=== PATIENT | male | born 1935 | race Caucasian/White ===

== ENCOUNTER 2019-02-12 18:12 | Inpatient (IN) | payer MEDICARE, BC ==
[2019-02-12 19:22] LABS: Bilirubin Moderate (Negative); Blood, Urine Moderate (Negative); Glucose, Urine (Dipstick) Negative (Negative); Leukocyte Negative (Negative); Nitrite Negative (Negative); Protein, Urine (Dipstick) Trace mg/dL (Neg-Trace); Specific Gravity, Urine 1.025 (1.005-1.030); Urobilinogen 0.2 mg/dL (0.2-1.0); pH, Urine 5.5 (5.0-9.0)
[2019-02-12 19:24] LABS: Clarity Hazy (Clear)
[2019-02-12 19:34] LABS: RBC/HPF 0-3 HPF (0-3)
[2019-02-12 19:35] LABS: Bacteria/HPF None Seen HPF (None Seen); Hyaline Casts/LPF 0-3 HYALINE CAST LPF (0-3 Hyaline); Squamous Epithelial None Seen HPF (0-3)
[2019-02-12 19:42] LABS: ALT (SGPT) 33 U/L (8-55); AST (SGOT) 144 U/L (5-34); Albumin 3.1 g/dL (3.4-4.8); Alkaline Phosphatase 34 U/L (40-150); Anion Gap 13 mmol/L (10-20); BUN (Urea Nitrogen) 49 mg/dL (8.4-25.7); Bilirubin, Total 0.9 mg/dL (0.2-1.2); CK (CPK) 2584 U/L (30-200); Calc. Creatinine Clearance 0 mL/min (70-130); Calcium 7.8 mg/dL (7.8-10.44); Carbon Dioxide 26 mmol/L (23-31); Chloride 92 mmol/L (98-107); Estimated GFR-MDRD 19; Globulin 2.1 g/dL (2.4-3.5); Glucose 107 mg/dL (83-110); Potassium 4.5 mmol/L (3.5-5.1); Protein, Total 5.2 g/dL (5.8-8.1); Sodium 126 mmol/L (136-145)
[2019-02-12 20:05] LABS: CKMB 17.6 ng/mL (0-6.6)
[2019-02-12] MEDS ORDERED: Ondansetron PF 4 MG/2 ML Vial IVP PRN (20:13)
[2019-02-12] MEDS ORDERED: Ondansetron ODT 4 MG TAB PO PRN (20:13)
[2019-02-12] MEDS ORDERED: hydrALAZINE 20 MG/ML VIAL SLOW IVP PRN (20:13)
[2019-02-12] MEDS ORDERED: Dextrose 5% in Water 1,000 ML IV PRN (20:13)
[2019-02-12] MEDS ORDERED: Dextrose 50% Abboject 50 ML SYRINGE SLOW IVP PRN (20:13)
[2019-02-12 20:26] LABS: Acetaminophen Less than 6.0 mcg/mL (10.0-30.0); Alcohol Less than 10 mg/dL (Less than 10); Salicylate Less than 8.0 mg/dL (15.0-30.0)
[2019-02-12] MEDS ORDERED: Multivitamins, Adult 10 ML, Thiamine HCl 100 MG, Folic Acid 1 MG in Dextrose 5 %-0.45 %... IV SCH (20:30)
[2019-02-12 20:38] LABS: Phosphorus 5.1 mg/dL (2.3-4.7)
[2019-02-12] MEDS: Sodium Chloride 0.9% 1,000 ML IV SCH ×2 (22:35→22:59)
[2019-02-12] MEDS: Famotidine/PF 20 mg/2ml Vial SLOW IVP SCH (22:35)
[2019-02-12] MEDS: Nicotine 14 MG PATCH TD SCH (22:35)
[2019-02-12 22:55] LABS: Free T4 (Free Thyroxine) 0.71 ng/dL (0.70-1.48); Thyroid Stimulating Hormone 0.9172 uIU/mL (0.35-4.94)
[2019-02-12 23:06] LABS: CKMB 18.1 ng/mL (0-6.6)
[2019-02-12 23:10] LABS: Folate (Folic Acid) 17.2 ng/mL (7.0-31.4)
[2019-02-13] MEDS: Acetaminophen 1,000 MG in Premix Bag 1 BAG IVPB SCH ×4 (01:55→17:29)
--- NOTE | 2019-02-13 03:47 | HP ---
REQUESTING PHYSICIAN: Dr. Groves. CONSULTS: Dr. Brady. SUBJECTIVE: This is an 83-year-old gentleman who presented as a transfer from [facility] status post fall. The patient last was seen or heard from on , the son tried to call the patient again the next day, and the patient did not answer the phone, which was unusual. The son arrived to the patient's house today where he lives alone around 1 o'clock and found the patient on the floor in his bedroom. The patient is normally ambulatory, alert and oriented x3. The patient was altered when he arrived. Son also reports that the patient has a past medical history of hyponatremia and alcohol abuse, although it appears that the patient has not consumed alcohol in the last week or 2. The patient was seen by his primary care physician, Dr. Hartman, 2 weeks ago where he was placed on an antidepressant medication. The patient was also placed on antibiotics due to wheezing. Son also reported that he has been feeling increasingly tired and there was some medication adjustments, but unsure of what medications were changed. The patient walks with a cane at home. Son also reports that the patient has meals prepare for him and has access to food daily. PAST MEDICAL HISTORY: 1. Gastroesophageal reflux disease. 2. Prostate problems. 3. Hypertension. 4. Hyponatremia. PAST SURGICAL HISTORY: Left shoulder. SOCIAL HISTORY: The patient lives at home alone, smokes a pack a day for the last 60+ years, chronic alcohol use. ALLERGIES: NO KNOWN DRUG ALLERGIES. REVIEW OF SYSTEMS: A 10-point review of systems is negative unless otherwise stated in the above HPI. Also information all gathered from the patient's son as the patient is nonverbal at this time. PHYSICAL EXAMINATION: VITAL SIGNS: Blood pressure 113/63, pulse 84, respirations 16, temperature 98.3, SpO2 of 95% on room air. GENERAL: The patient is lying supine in the ER stretcher, the patient resting with eyes closed, the patient is severely hard of hearing, no distress, the patient is afebrile. HEENT: Head is normocephalic and atraumatic. Pupils are 2 mm bilateral. Trachea is midline, there is no posterior neck tenderness. RESPIRATORY: Bilateral breath sounds clear to auscultation. No respiratory distress. No wheezing, rales, or rhonchi. CARDIOVASCULAR: Regular rate and rhythm, no heart murmurs, no pedal edema. ABDOMEN: Soft, nontender, and nondistended. Positive bowel sounds. EXTREMITIES: Normal range of motion in the upper extremities. Right lower extremity with external rotation and shortening. Large abrasion skin tear to the right medial knee. Distal pulses 2+ in all extremities. NEUROLOGIC: The patient follows simple commands. The patient attempts to speak, but unable to form words. LABORATORY DATA: Sodium 126, potassium 4.5, chloride 92, anion gap 13, BUN 49, creatinine 3.14, estimated GFR 19, glucose 107, calcium 7.8, phosphorus 5.1, magnesium 1.5, AST 144, ALT 33, alkaline phos 34. Ammonia level 18. CK 2584, CK-MB 17.6, troponin 0.048, previous troponin 3 hours before was 0.51. Serum total protein 5.2, albumin 3.1, globulin 2.1. Urinalysis, moderate blood, negative leukocyte esterase, negative nitrites, no bacteria, positive for WBCs, salicylate level less than 8.0, acetaminophen less than 6.0, plasma alcohol less than 10. WBC 10.9, RBC 2.31, hemoglobin 8.3, hematocrit 23.7, MCV 102, MCH 35.8, platelets 318. PT 14.0, INR 1.1, PTT 30.6. DIAGNOSTIC DATA: 1. Brain CT, no acute intracranial abnormalities. 2. Chest x-ray, no active intrathoracic disease. 3. Femur x-ray, intertrochanteric fracture for right hip. 4. EKG, sinus rhythm with right bundle branch block. IMPRESSION: 1. Ground level fall with delayed presentation. 2. Right intertrochanteric femur fracture. 3. Rhabdomyolysis. 4. Dehydration. 5. Chronic macrocytic anemia. 6. Chronic hyponatremia. 7. Metabolic encephalopathy. 8. History of chronic alcohol abuse. 9. Acute renal injury. PLAN: We will admit the patient to telemetry for continuous cardiac monitoring. We will trend the patient's troponins and CK. We will keep the patient n.p.o. at this time as the patient is altered and nonverbal currently. We will place a speech consult. We will continue to hydrate the patient and start the patient on a banana bag with thiamine and folate. We will avoid NSAID use due to poor renal function. We will order neuro checks and report any change less than 1 point in patient's GCS. We will place the patient on a free water restriction. We will place PT/OT consult after repair of the patient's right hip. Anticipate that the ortho will take the patient in the next couple days after patient is rehydrated. We will place patient on a nicotine patch as he is a chronic smoker. The plan has been discussed with Dr. Mcdonnell , who agrees. Job ID: [id number]
[2019-02-13] MEDS: Sodium Chloride 0.9% 1,000 ML IV SCH ×3 (05:50→16:56)
[2019-02-13 06:41] LABS: Band 3 % (5-11); Burr Cells SLIGHT = 2-5 cells (100X) (0-1/hpf); Hemoglobin 8.3 g/dL (14.0-18.0); Lymphocytes 6 % (21-51); MDiff Complete? YES; Macrocytosis SLIGHT = 6-15 cells (100X) (0-5/hpf); Mean Corpuscular HGB CONC 32.8 g/dL (32.0-36.0); Mean Corpuscular Hemoglobin 36.5 pg (27.0-31.0); Mean Platelet Volume 6.1 fL (7.4-10.4); Monocytes 11 % (0-10); Neutrophil 80 % (42-75); Platelet Count 324 thou/uL (130-400); RBC Distribution Width 14.1 % (11.5-14.5); Red Blood Cell (RBC) Count 2.27 mill/uL (4.70-6.10); White Blood Cell (WBC) Count 10.8 thou/uL (4.8-10.8)
[2019-02-13 07:31] LABS: ALT (SGPT) 35 U/L (8-55); AST (SGOT) 138 U/L (5-34); Albumin 2.9 g/dL (3.4-4.8); Alkaline Phosphatase 32 U/L (40-150); Anion Gap 15 mmol/L (10-20); BUN (Urea Nitrogen) 46 mg/dL (8.4-25.7); Bilirubin, Total 0.8 mg/dL (0.2-1.2); CK (CPK) 1960 U/L (30-200); Calc. Creatinine Clearance 18 mL/min (70-130); Calcium 7.8 mg/dL (7.8-10.44); Carbon Dioxide 22 mmol/L (23-31); Chloride 94 mmol/L (98-107); Estimated GFR-MDRD 22; Globulin 2.5 g/dL (2.4-3.5); Glucose 100 mg/dL (83-110); Magnesium 1.8 mg/dL (1.6-2.6); Phosphorus 4.4 mg/dL (2.3-4.7); Potassium 4.6 mmol/L (3.5-5.1); Protein, Total 5.4 g/dL (5.8-8.1); Sodium 126 mmol/L (136-145)
[2019-02-13] MEDS: Famotidine/PF 20 mg/2ml Vial SLOW IVP SCH ×2 (08:43→21:37)
[2019-02-13] MEDS ORDERED: Sodium Chloride 0.9% 500 ML IV SCH (08:45)
[2019-02-13] MEDS ORDERED: Prevnar 13-Val Conj/PF 0.5 ML SYRINGE IM ONE (09:00)
[2019-02-13] MEDS ORDERED: PROVENTIL INHALER 6.7 G (200 INHALATIONS) INH PRN (12:52)
--- NOTE | 2019-02-13 13:00 | CON ---
DATE OF CONSULTATION: 02/13/2019 CHIEF COMPLAINT: Right hip pain. HISTORY OF PRESENT ILLNESS: Mr. Euceda is an 83-year-old male, who lives independently. He fell at home. He likely was down for 2 to 3 days unfortunately before he was found. He has a history of alcohol abuse and frequent falls. His son did eventually find him and called EMS. He was taken to the emergency department. He was found to have significant dehydration as well as a right intertrochanteric femur fracture. He had rhabdomyolysis as well. PAST MEDICAL HISTORY: GERD, prostatic hypertrophy, hypertension, hyponatremia, breast surgery, history of left shoulder surgery. SOCIAL HISTORY: The patient lives alone. He does smoke cigarettes. He uses alcohol. No drug use. He has milk delivered to him. ALLERGIES: NO KNOWN DRUG ALLERGIES. REVIEW OF SYSTEMS: Unable to obtain currently because of mental status. PHYSICAL EXAMINATION: VITAL SIGNS: Temperature is 97.5, pulse is 80, respiratory rate of 20, blood pressure is 118/57. GENERAL: He is lying supine sleepy. Does not answer questions appropriately. HEENT: Normocephalic and atraumatic. RESPIRATORY: Breathing comfortably. ABDOMEN: Soft, nontender, nondistended. MUSCULOSKELETAL: The patient has an ecchymosis over his right thigh. He has mild thigh swelling. He is able to flex and extend the ankle. Foot is warm and well perfused. IMAGING STUDIES: X-rays of the right hip demonstrate an intertrochanteric femur fracture with displacement, this appears acute. IMPRESSION: Elderly male with history of alcohol abuse and frequent falls with intertrochanteric femur fracture and dehydration as well as hyponatremia. PLAN: At this point, the patient will need further medical optimization prior to surgical intervention. He needs continued rehydration. His kidney function is poor. This may be related to rhabdomyolysis. He will have an echocardiogram done today as well. Once he is medically optimized, I think his treatment regarding his intertrochanteric femur fracture would be intramedullary nail fixation. This will give him the best chance of mobilization again and preserving his quality of life. We will need to discuss this further with his son as the patient cannot consent in his current state. I will not plan for surgery today given that he needs ongoing medical care. We will add him for the surgical schedule tomorrow in hopes that he has improved. We will continue to follow closely. Job ID: [id number]
[2019-02-13] MEDS: traMADol HCl 50 MG TAB PO PRN (15:06)
--- NOTE | 2019-02-13 15:12 | PRG ---
DATE OF SERVICE: 02/13/2019 SUBJECTIVE: An 83-year-old gentleman, status post fall. The patient with delayed presentation who was found on his bedroom for possibly down for 2 to 3 days. The patient is more alert today. The patient complained of being cold. The patient is currently getting his echocardiograms done. The patient is severely hard of hearing. The patient follows all commands. The patient is oriented to person, place, and date. Mucous membranes are dry. Pending speech therapy evaluation. There were no overnight events. OBJECTIVE: VITAL SIGNS: Blood pressure 118/57, temperature 97.5, pulse 80, respirations 20, SpO2 of 95% on room air. GENERAL: The patient in no distress. Denies pain. Severely hard of hearing. HEENT: Normocephalic and atraumatic. RESPIRATORY: Bilateral breath sounds, clear to auscultation. No wheezing, rales, or rhonchi. No respiratory distress. CARDIOVASCULAR: Regular rate and rhythm, no heart murmurs, no pedal edema. ABDOMEN: Soft, nontender, nondistended. Positive bowel sounds. EXTREMITIES: Normal range of motion, upper extremities with good strength. Right lower extremity with external rotation and shortening. Large skin tear to right medial knee. Distal pulses 2+ in all extremities. NEUROLOGIC: The patient is awake and alert. Follows all commands. The patient is oriented to person, place, and time. LABORATORY DATA: WBC 10.8, RBC 2.27, hemoglobin 8.3, hematocrit 25.3, MCV 111, platelets 324. Sodium 126, chloride 94, CO2 of 22, BUN 46, creatinine 2.74, estimated GFR 22, glucose 100, calcium 7.8, phosphorus 4.4, magnesium 1.8. AST 138, ALT 35, alkaline phos 32. CK improved to 1960. Serum total protein 5.4, albumin 2.9, globulin 2.5. DIAGNOSTIC DATA: Transthoracic echocardiogram report shows ejection fraction is visually estimated at 50% to 55%, grade 1/3 systolic dysfunction, mildly dilated left atrium, mitral annular calcification is present, trace mitral regurgitation, elevated right ventricular systolic pressure estimated at 43. IMPRESSION: 1. Ground level fall with delayed presentation. 2. Right intertrochanteric femur fracture. 3. Rhabdomyolysis, improving. 4. Dehydration, improving. 5. Chronic macrocytic anemia. 6. Chronic hyponatremia. 7. Metabolic encephalopathy, improved. 8. History of chronic alcohol abuse. 9. [id number] renal injury. PLAN: We will continue the patient on telemetry floor. We will place the patient on a heart healthy diet to mechanical soft diet per speech therapy recommendations. We will place the patient on daily thiamine and folate. We will continue to avoid NSAID use due to patient's poor renal function. We will continue a free water restriction due to the patient's hyponatremic state. We will place a PT/OT consult after the OR. The patient will be placed n.p.o. after midnight. Plan is for Dr. Brady, to take the patient to the OR on Thursday for repair. The plan has been discussed with Dr. Castro, who agrees. Job ID: [id number]
[2019-02-13] MEDS ORDERED: Magnesium Sulfate 3 GM in Sodium Chloride 0.9% 100 ML IVPB SCH (15:15)
[2019-02-13] MEDS ORDERED: Clopidogrel Bisulfate 75 MG TAB ONE (16:45)
[2019-02-13] MEDS: Ferrous Sulfate 325 MG TAB PO SCH (16:55)
[2019-02-13] MEDS: Mometasone/Formoterol 120 PUFF INHALER INH SCH (19:24)
[2019-02-13] MEDS ORDERED: Multivitamins, Adult 10 ML, Folic Acid 1 MG, Thiamine HCl 100 MG in Dextrose 5 %-0.45 %... IV SCH (20:00)
[2019-02-13] MEDS: Nicotine 14 MG PATCH TD SCH (22:14)
[2019-02-14] MEDS: Acetaminophen 1,000 MG in Premix Bag 1 BAG IVPB SCH
[2019-02-14] MEDS: Sodium Chloride 0.9% 1,000 ML IV SCH ×4 (00:06→21:22)
[2019-02-14 07:12] LABS: #Lymphocytes 0.8 thou/uL (1.20-3.40); #Monocytes 0.8 thou/uL (0.11-0.59); #Neutrophils 6.1 thou/uL (1.40-6.50); %Basophils 0.5 % (0.0-1.0); %Eosinophils 0.2 % (0.0-10.0); %Lymphocytes 10.2 % (21.0-51.0); %Neutrophils 79.1 % (42.0-75.0); Hemoglobin 7.7 g/dL (14.0-18.0); Mean Corpuscular HGB CONC 32.2 g/dL (32.0-36.0); Mean Corpuscular Hemoglobin 35.8 pg (27.0-31.0); Platelet Count 375 thou/uL (130-400); RBC Distribution Width 14.2 % (11.5-14.5); Red Blood Cell (RBC) Count 2.15 mill/uL (4.70-6.10); White Blood Cell (WBC) Count 7.7 thou/uL (4.8-10.8)
[2019-02-14 07:24] LABS: CK (CPK) 953 U/L (30-200); Magnesium 2.2 mg/dL (1.6-2.6); Phosphorus 3.3 mg/dL (2.3-4.7)
[2019-02-14] MEDS ORDERED: CEFAZOLIN 2 GM in Premix Bag 1 BAG IVPB SCH (07:30)
[2019-02-14 07:43] LABS: CKMB 9.4 ng/mL (0-6.6)
[2019-02-14] MEDS: Mometasone/Formoterol 120 PUFF INHALER INH SCH ×2 (07:48→19:38)
[2019-02-14] MEDS: Ferrous Sulfate 325 MG TAB PO SCH ×2 (08:16→20:16)
[2019-02-14] MEDS: Ascorbic Acid 500 mg Chewable Tablet PO SCH ×3 (08:17→20:16)
[2019-02-14] MEDS: Famotidine/PF 20 mg/2ml Vial SLOW IVP SCH (08:17)
[2019-02-14] MEDS: Tamsulosin HCl 0.4 MG CAP PO SCH (08:17)
[2019-02-14] MEDS: Folic Acid 1 MG TAB PO SCH ×2 (08:18→08:21)
[2019-02-14] MEDS: Thiamine 100 MG TAB PO SCH ×2 (08:18→08:21)
[2019-02-14] MEDS ORDERED: Famotidine 20 MG TAB PO SCH (09:00)
[2019-02-14] MEDS ORDERED: Phenylephrine HCL 10 MG/ML VIAL ONE (13:27)
[2019-02-14] MEDS ORDERED: Fentanyl 100 MCG/2 ML VIAL ONE ×2 (14:24→16:28)
[2019-02-14] MEDS ORDERED: PROPOFOL 200 MG/20 ML VIAL ONE (15:22)
[2019-02-14] MEDS ORDERED: Ondansetron PF 4 MG/2 ML Vial ONE (15:22)
[2019-02-14] MEDS ORDERED: Rocuronium Bromide 10 MG/ML (10ML VIAL) ONE (15:22)
[2019-02-14] MEDS ORDERED: Dexamethasone 20 MG/5 ML VIAL ONE (15:22)
[2019-02-14] MEDS ORDERED: Lidocaine 1% PF 5 ML VIAL ONE (15:22)
[2019-02-14] MEDS ORDERED: PHENYLEPHRINE-NS 100 MCG/ML 10 ML SYRINGE ONE (15:22)
[2019-02-14] MEDS ORDERED: Glycopyrrolate 0.2 MG/ML 5 ML SYRINGE ONE (15:22)
[2019-02-14] MEDS ORDERED: Promethazine HCl 25 MG/ML VIAL SLOW IVP PRN (15:49)
[2019-02-14] MEDS ORDERED: Promethazine HCl 25 MG/ML VIAL IM PRN (15:49)
[2019-02-14] MEDS ORDERED: Meperidine HCl/PF 25 MG/ML VIAL SLOW IVP PRN (15:49)
--- NOTE | 2019-02-14 16:55 | RAD ---
FRight femur intraoperative views, fluoroscopy: 3 views provided CLINICAL HISTORY: Right femoral intramedullary nail placement FINDINGS: Postoperative right hip is present with gamma nail in place traversing the intertrochanteri c fracture with near-anatomic alignment. Detail is limited by intraoperative magnified fluoroscopic i maging. Incidental note of vascular disease. IMPRESSION: Postoperative right hip, as above.
--- NOTE | 2019-02-14 18:29 | PRG ---
DATE OF SERVICE: 02/14/2019 SUBJECTIVE: Mr. Euceda is an 83-year-old man, who is post admission day #2. The patient was found down for several hours. He was admitted with right intertrochanteric femur fracture, rhabdomyolysis, acute dehydration as well as acute metabolic encephalopathy. He was also noted with incidental chronic macrocytic anemia. The patient is seen in the recovery room following operative intervention to his intertrochanteric femur fracture. Urinary output has been adequate over the last 24 hours. The patient is awake and alert. Moves all extremities and answers questions. He does follow commands, which gives him a Martine Coma Scale of 14. He is hard of hearing at baseline. OBJECTIVE: VITAL SIGNS: Today include blood pressure is 123/65, pulse is 85, respiratory rate is 16, temperature is 97.7 degrees Fahrenheit, and oxygen saturation is 94% on room air. HEENT: Pupils are equal, round, and reactive to light and accommodation. NECK: He has no jugular venous distention noted. HEART: Regular rate and rhythm. No murmurs or gallops auscultated. LUNGS: Clear to auscultation bilaterally. Breathing, regular and nonlabored. ABDOMEN: Soft, nontender, and nondistended. EXTREMITIES: 2+ radial and pedal pulses bilaterally. NEUROLOGIC: No focal deficits present. LABORATORY FINDINGS: Today includes a CBC with 7700 white blood cells, hemoglobin and hematocrit of 7.7 and 24.0 respectively. Platelet count is 375,000. IMPRESSIONS: 1. Status post open reduction and internal fixation of intertrochanteric femur fracture. 2. Resolving acute kidney injury secondary to acute rhabdomyolysis. 3. Acute on chronic anemia, stable. PLAN: 1. Initiate physical and occupational therapy. 2. We will ask PM and R to evaluate the patient for possible inpatient rehabilitation post discharge. 3. We will monitor the patient's blood count and metabolic profile to ensure stable anemia and resolution of the acute kidney injury. Job ID: [id number]
[2019-02-14] MEDS: Acetaminophen 500 MG TAB PO SCH ×2 (20:17→23:48)
[2019-02-14] MEDS: Nicotine 14 MG PATCH TD SCH (21:22)
[2019-02-14] MEDS: CEFAZOLIN 2 GM in Premix Bag 1 BAG IVPB SCH (21:23)
[2019-02-15] MEDS: traMADol HCl 50 MG TAB PO PRN ×2 (04:39→14:44)
[2019-02-15] MEDS: Sodium Chloride 0.9% 1,000 ML IV SCH (05:31)
[2019-02-15] MEDS: CEFAZOLIN 2 GM in Premix Bag 1 BAG IVPB SCH (05:31)
[2019-02-15] MEDS: Acetaminophen 500 MG TAB PO SCH ×4 (05:31→23:50)
[2019-02-15 05:52] LABS: Anion Gap 11 mmol/L (10-20); BUN (Urea Nitrogen) 28 mg/dL (8.4-25.7); CK (CPK) 506 U/L (30-200); Calc. Creatinine Clearance 42 mL/min (70-130); Calcium 7.5 mg/dL (7.8-10.44); Carbon Dioxide 22 mmol/L (23-31); Chloride 102 mmol/L (98-107); Estimated GFR-MDRD 53; Glucose 91 mg/dL (83-110); Magnesium 1.7 mg/dL (1.6-2.6); Phosphorus 2.1 mg/dL (2.3-4.7); Potassium 3.6 mmol/L (3.5-5.1); Sodium 131 mmol/L (136-145)
[2019-02-15 06:19] LABS: Eosinophils 1 % (0-10); Hemoglobin 7.2 g/dL (14.0-18.0); Lymphocytes 12 % (21-51); MDiff Complete? YES; Macrocytosis SLIGHT = 6-15 cells (100X) (0-5/hpf); Mean Corpuscular HGB CONC 34.6 g/dL (32.0-36.0); Mean Corpuscular Hemoglobin 37.5 pg (27.0-31.0); Mean Platelet Volume 5.7 fL (7.4-10.4); Monocytes 6 % (0-10); Neutrophil 81 % (42-75); Platelet Count 318 thou/uL (130-400); RBC Distribution Width 14.3 % (11.5-14.5); Red Blood Cell (RBC) Count 1.92 mill/uL (4.70-6.10); White Blood Cell (WBC) Count 6.6 thou/uL (4.8-10.8)
[2019-02-15] MEDS: Mometasone/Formoterol 120 PUFF INHALER INH SCH ×2 (07:46→18:03)
[2019-02-15] MEDS: Ferrous Sulfate 325 MG TAB PO SCH ×2 (10:57→18:48)
[2019-02-15] MEDS: Ascorbic Acid 500 mg Chewable Tablet PO SCH ×2 (10:58→18:48)
[2019-02-15] MEDS: Folic Acid 1 MG TAB PO SCH (10:59)
[2019-02-15] MEDS: Aspirin 81 mg Enteric Coated Tablet PO SCH ×2 (10:59→21:09)
[2019-02-15] MEDS: Thiamine 100 MG TAB PO SCH (10:59)
[2019-02-15] MEDS: Tamsulosin HCl 0.4 MG CAP PO SCH (11:00)
[2019-02-15] MEDS ORDERED: Magnesium 2 GM/50 ML 2 GM in Premix Bag 1 BAG IVPB SCH (12:30)
[2019-02-15] MEDS ORDERED: Potassium Phosphate 30 MMOL in Sodium Chloride 0.9% 250 ML 250 ML IVPB SCH (12:30)
--- NOTE | 2019-02-15 17:02 | OP ---
DATE OF PROCEDURE: 02/14/2019 PREOPERATIVE DIAGNOSIS: Right intertrochanteric femur fracture. POSTOPERATIVE DIAGNOSIS: Right intertrochanteric femur fracture. PROCEDURE PERFORMED: TFN nail to right proximal femur. ANESTHESIA: General. CLINICAL NURSE REVIEWER: Giovanny. ESTIMATED BLOOD LOSS: 50 mL. IMPLANTS: Synthes TFNA 12 mm diameter nail x 170 mm long with a 130-degree contour for hip screw also with a 100 mm hip screw placement. COMPLICATIONS: None. DRAINS: None. SPECIMEN: None. OUTCOME: Near-anatomic alignment. INDICATIONS: The patient is an 83-year-old gentleman status post ground level fall sustaining a right intertrochanteric femur fracture. After discussion with the patient and his son regarding risks and benefits of surgery, we have decided to proceed with TFNA stabilization for this fracture. Informed consent has been obtained. I believe all questions were answered. DESCRIPTION OF PROCEDURE: The patient was brought to the operating room and a time-out performed followed by induction of general anesthesia. The patient was positioned supine on the fracture table with his lower extremity scissored with the left unaffected limb held in extension at the hip and the right limb held in longitudinal traction with a boot with reduction of the fracture. Next, a sterile prep and drape was performed in the right lateral thigh. An incision was made proximal to the greater trochanter. After skin was sharply incised, dissection was carried down bluntly such that the tip of the greater trochanter could be palpated. Next, a threaded guidewire was passed from the tip of the greater trochanter into the canal of the proximal femur. The opening reamer was then passed over this guidewire. Next, a 12 x 170 mm TFN nail was passed into the canal of the proximal femur without difficulty and delivered to an appropriate depth for acceptance of the hip screw. Next, a second incision was made distal to the first and the jig for the hip screw was inserted through this incision up against the lateral cortex of the femur. A threaded guidewire was then passed from the lateral cortex of the femur up the femoral neck into the femoral head approaching a [id number] position under C-arm guidance. Once appropriately positioned, measurement was taken off this guidewire and a step drill was then passed over the guidewire to further prepare the femoral neck and head for screw placement. A 100 mm long TFNA hip screw was passed through the nail and up into the femoral neck and head region. Once positioned, the jig was removed distally and then a single cross-lock screw was applied using the outrigger arm through a third small incision. The aiming arm was then removed from the proximal nail and final AP and lateral C-arm images were obtained that showed acceptable alignment of the fracture and acceptable positioning of the hardware. The small incisions were then irrigated with bulb syringe, then closed in layers with 0 Vicryl deep, followed by 2-0 Vicryl and paz for the skin. Xeroform gauze and tape dressing were applied to the thigh and then, the patient was transferred to recovery room in stable condition. There were no complications. He tolerated the procedure well. Job ID: [id number]
--- NOTE | 2019-02-15 17:55 | PRG ---
DATE OF SERVICE: 02/15/2019 HISTORY: Mr. Euceda is an 83-year-old man, who is post admission day #3 and postoperative day #1, status post IM nail to right femur. The patient is awake and interactive. He reports adequate pain control. He is slightly confused today, but moves all extremities and follows commands. [place] Coma Scale is noted at E4, V4, M6. OBJECTIVE: VITAL SIGNS: Today include blood pressure 156/76, pulse is 99, respiratory rate is 14, temperature is 98.8 degrees Fahrenheit, oxygen saturation 99% on room air. HEENT: Reveals pupils equal, round, reactive to light and accommodation. He has no jugular venous distention noted. HEART: Reveals regular rate and rhythm. No murmurs or gallops auscultated. LUNGS: Clear to auscultation bilaterally. Breathing, regular and nonlabored. ABDOMEN: Soft, nontender, nondistended. EXTREMITIES: Reveals 2+ radial and pedal pulses bilaterally. No ankle edema is present. NEUROLOGIC: Reveals no focal deficits present. LABORATORY FINDINGS: Today include a CBC with 6600 white blood cells, hemoglobin and hematocrit are 7.2 and 20.8 respectively. Platelet count is 318,000. Metabolic profile; sodium 131, potassium 3.6, chloride is 102, bicarb is 22, BUN 28, creatinine is 1.29, marked improvement from 2.74 on 02/13/2019. Phosphorus is 2.1, magnesium is 1.7 and creatine kinase is decreasing now at 506 in contrast to 1960 on 02/13/2019. IMPRESSIONS: 1. Post admission day #3 status post ground level fall with right hip fracture and rhabdomyolysis. 2. Resolving rhabdomyolysis. 3. Resolving acute kidney injury. 4. Stable microcytic anemia with concomitant acute blood loss anemia. 5. Acute metabolic encephalopathy. 6. Acute hypokalemia. 7. Acute hypophosphatemia. 8. Acute hypomagnesemia. PLAN: 1. Correct abnormal electrolytes. 2. The patient will be transfused with 1 unit of packed red blood cells. 3. Initiate Physical and Occupational therapy. 4. We will ask Physical Medicine and Rehabilitation to evaluate the patient for possible inpatient rehabilitation post discharge versus transfer to swing bed. Above findings and plan discussed with the patient. The same will be communicated with the patient's family upon arrival. Job ID: [id number]
[2019-02-15] MEDS: Nicotine 14 MG PATCH TD SCH (21:09)
[2019-02-16] MEDS: Acetaminophen 500 MG TAB PO SCH ×3 (05:11→18:11)
[2019-02-16 05:55] LABS: #Lymphocytes 0.9 thou/uL (1.20-3.40); #Monocytes 0.9 thou/uL (0.11-0.59); #Neutrophils 5.5 thou/uL (1.40-6.50); %Basophils 0.4 % (0.0-1.0); %Eosinophils 0.6 % (0.0-10.0); %Lymphocytes 11.7 % (21.0-51.0); %Monocytes 12.3 % (0.0-10.0); %Neutrophils 74.9 % (42.0-75.0); Hemoglobin 8.5 g/dL (14.0-18.0); Mean Corpuscular HGB CONC 34.1 g/dL (32.0-36.0); Mean Corpuscular Hemoglobin 35.7 pg (27.0-31.0); Mean Platelet Volume 5.9 fL (7.4-10.4); Platelet Count 329 thou/uL (130-400); RBC Distribution Width 16.5 % (11.5-14.5); Red Blood Cell (RBC) Count 2.38 mill/uL (4.70-6.10); White Blood Cell (WBC) Count 7.3 thou/uL (4.8-10.8)
[2019-02-16 06:12] LABS: Anion Gap 9 mmol/L (10-20); BUN (Urea Nitrogen) 20 mg/dL (8.4-25.7); Calc. Creatinine Clearance 55 mL/min (70-130); Calcium 7.7 mg/dL (7.8-10.44); Carbon Dioxide 24 mmol/L (23-31); Chloride 101 mmol/L (98-107); Estimated GFR-MDRD 74; Glucose 81 mg/dL (83-110); Magnesium 1.8 mg/dL (1.6-2.6); Phosphorus 2.6 mg/dL (2.3-4.7); Potassium 3.7 mmol/L (3.5-5.1); Sodium 130 mmol/L (136-145)
[2019-02-16] MEDS: Mometasone/Formoterol 120 PUFF INHALER INH SCH ×2 (06:43→18:50)
[2019-02-16] MEDS ORDERED: Potassium Phosphate 15 MMOL in Sodium Chloride 0.9% 250 ML 250 ML IVPB SCH (07:00)
[2019-02-16] MEDS ORDERED: Magnesium 2 GM/50 ML 2 GM in Premix Bag 1 BAG IVPB SCH (07:00)
[2019-02-16] MEDS: Thiamine 100 MG TAB PO SCH (08:55)
[2019-02-16] MEDS: Tamsulosin HCl 0.4 MG CAP PO SCH (08:56)
[2019-02-16] MEDS: Citalopram 20 MG TAB PO SCH (08:56)
[2019-02-16] MEDS: Ferrous Sulfate 325 MG TAB PO SCH ×2 (08:56→18:11)
[2019-02-16] MEDS: Ascorbic Acid 500 mg Chewable Tablet PO SCH ×2 (08:56→18:11)
[2019-02-16] MEDS: Aspirin 81 mg Enteric Coated Tablet PO SCH ×2 (08:56→20:47)
[2019-02-16] MEDS: Folic Acid 1 MG TAB PO SCH (08:56)
[2019-02-16] MEDS: Dutasteride 0.5 MG CAP PO SCH ×2 (10:19→10:31)
[2019-02-16] MEDS: Sodium Chloride 0.9% 1,000 ML IV SCH (11:07)
--- NOTE | 2019-02-16 11:10 | RAD ---
FXR Abdomen 2 View History: [Nausea and vomiting] Comparison: None. Findings: There are mildly distended loops of stool-filled large bowel. No dilated air-filled loops o f large or small bowel. Moderate degenerative changes of the lumbar spine. Intramedullary nail right femur. There are paz along the right wrist. No free air under the hemid iaphragms on the upright exam. There are dense vascular calcifications. Impression: Moderate stool burden. No acute intra-abdominal abnormality.
--- NOTE | 2019-02-16 14:01 | PRG ---
DATE OF SERVICE: 02/16/2019 SUBJECTIVE: The patient had urinary retention overnight. He was I and O cath one time and subsequently a Mcmullen was placed with 1.1 L out. The patient was seen this morning with continued mild encephalopathy, but was redirectable and follows commands. Tolerating a diet; however, he reported that he was not hungry for breakfast this morning. Denies nausea, vomiting, and diarrhea. Just stated that he was cold as his room was quite chilly. OBJECTIVE: VITAL SIGNS: Temperature 97.6, pulse 80, respirations 16, oxygen 98% on room air, and blood pressure 120/66. GENERAL: Elderly male lying in bed with no signs of acute distress. PULMONARY: Equal chest rise and fall. Clear breath sounds bilaterally. No signs of acute respiratory distress. GI: Abdomen is soft, nontender, and nondistended. EXTREMITIES: A 2+ pulses in all extremities. No significant swelling noted. Gross motor sensation intact in all extremities. GENITOURINARY: Mcmullen in place with clear yellow urine in bag. LABORATORY FINDINGS: White count 7.3, hemoglobin 8.5, hematocrit 24.9, and platelets 329. Sodium 130, potassium 3.7, chloride 101, carbon dioxide 29, BUN 20, creatinine 0.97, glucose 81, phos 2.6, and magnesium 1.8. DIAGNOSTIC FINDINGS: There are no new diagnostic findings to report. ASSESSMENT: 1. Status post the patient found down. 2. Right intertrochanteric femur fracture. 3. Rhabdomyolysis. 4. Hypertension. 5. Acute kidney injury, resolved. 6. Metabolic encephalopathy, stable. 7. Recent malaise, weakness, and failure to thrive. 8. History of gastroesophageal reflux disease, hypertension, hyponatremia, benign prostatic hypertrophy, and alcohol abuse. PLAN: We will continue to keep the patient up during the day and open the blinds, so he is awake during the day and sleeping at night to help with delirium. Continue his home Celexa and Flomax. We will also start Avodart today. The patient will be discharged to a swing bed and such he can be discharged with his Mcmullen. We will replace potassium, phosphorus, and magnesium today. He will continue to work with Physical and Occupational Therapy. He is ready for discharge at this time. The patient was seen and examined by Dr. Castro and myself this morning during rounds. Job ID: [id number]
[2019-02-16] MEDS: Nicotine 14 MG PATCH TD SCH (21:00)
[2019-02-17] MEDS: Sodium Chloride 0.9% 1,000 ML IV SCH ×2 (00:38→01:22)
[2019-02-17] MEDS: Acetaminophen 500 MG TAB PO SCH ×3 (01:22→11:59)
[2019-02-17] MEDS: Mometasone/Formoterol 120 PUFF INHALER INH SCH (06:49)
[2019-02-17] MEDS: Thiamine 100 MG TAB PO SCH (09:07)
[2019-02-17] MEDS: Folic Acid 1 MG TAB PO SCH (09:08)
[2019-02-17] MEDS: Ascorbic Acid 500 mg Chewable Tablet PO SCH (09:08)
[2019-02-17] MEDS: Ferrous Sulfate 325 MG TAB PO SCH (09:08)
[2019-02-17] MEDS: Aspirin 81 mg Enteric Coated Tablet PO SCH (09:08)
[2019-02-17] MEDS: Tamsulosin HCl 0.4 MG CAP PO SCH (09:08)
[2019-02-17] MEDS: Citalopram 20 MG TAB PO SCH (09:09)
[2019-02-17] MEDS: Dutasteride 0.5 MG CAP PO SCH (09:09)
[2019-02-17 10:55] VITALS: BMI 20.9
[2019-02-17 12:02] VITALS: BP 153/71; TEMP 99
--- NOTE | 2019-02-18 04:42 | DIS ---
DATE OF ADMISSION: 02/12/2019 DATE OF DISCHARGE: 02/17/2019 ADMISSION DIAGNOSES: 1. Status post found down at home. 2. Right intertrochanteric femur fracture. 3. Rhabdomyolysis. 4. Dehydration. 5. Acute kidney injury. 6. Metabolic encephalopathy. 7. Failure to thrive. DISCHARGE DIAGNOSES: 1. Right intertrochanteric femur fracture. 2. Acute metabolic encephalopathy. 3. Failure to thrive. CONSULTING PHYSICIAN: Dr. Kee, Orthopedic Surgery. PROCEDURES: He had a TFN nail of the right proximal femur on February 14, 2019. HOSPITAL COURSE: The patient is an 83-year-old male who arrived to the emergency department after his son found him down in his home. He was worked up and was found to have a right intertrochanteric femur fracture, rhabdomyolysis, dehydration, acute kidney injury, and acute metabolic encephalopathy. The patient's family also reported that he had recent malaise and fatigue. He is a previous alcohol abuser and had stopped drinking alcohol about 2 weeks ago. He does not normally take a good diet, but does have regular access to food. He was admitted to the hospital and Dr. Kee was consulted. He went to the OR on February 14 and received a TFN nail of his right proximal femur. Postoperatively, his acute kidney injury did resolve, however, he did develop urinary retention. He was restarted on his home Flomax and then as well as Avodart. He was discharged to a swing bed. DISCHARGE DISPOSITION: Acute [facility] facility. DISCHARGE CONDITION: Satisfactory. PHYSICAL EXAMINATION: VITAL SIGNS: Temperature 99, pulse 90, respirations 20, oxygen 100% on room air, blood pressure 153/71. GENERAL: Elderly male, lying in bed with no signs of acute distress. PULMONARY: Equal chest rise and fall. Clear breath sounds bilaterally. No signs of acute distress. GASTROINTESTINAL: Abdomen is soft, nontender, nondistended. EXTREMITIES: 2+ pulses in all extremities. No significant swelling noted. Gross normal sensation in all extremities. GENITOURINARY: Mcmullen in place with clear yellow urine in bag. LABORATORY FINDINGS: There are no new laboratory findings to discuss. DISCHARGE INSTRUCTIONS: The patient is discharged to a swing bed at a penitentiary facility. He is activity as tolerated and 50% partial weightbearing to his right lower extremity. He has a regular diet with Ensure b.i.d. He is to get physical and occupational therapy and to use incentive spirometer and a walker. He was discharged home. DISCHARGE MEDICATIONS: 1. Tylenol. 2. Vitamin C. 3. Aspirin. 4. Avodart. 5. Ferrous sulfate. 6. Folic acid. 7. Nicotine. 8. Tramadol. 9. Omeprazole. 10. Flomax. 11. Symbicort. 12. Ventolin. 13. Citalopram. 14. Testosterone. FOLLOWUP APPOINTMENTS: The patient is to follow up with Dr. Kee in 10 days. No followup is needed with Dr. Castro. This is merely a summary of the patient's hospitalization. For full details, please see his medical record in its entirety. Job ID: [id number]
== END 2019-02-17 12:10 | DRG 480 ==
LOC: ERS 18:12 → 2NO 20:13 → SURG B 02-14 17:40
PROVIDERS: ADMIT Specialist; ATTEND Specialist
PROC: 30233N1 Transfusion of Nonautologous Red Blood Cells into Peripheral Vein, Percutaneous Approach (ICD-10-PCS; principal; 2019-02-14)
PROC: 0QS636Z Reposition Right Upper Femur with Intramedullary Internal Fixation Device, Percutaneous Approach (ICD-10-PCS; 2019-02-14)
DX: S72.141A Displaced intertrochanteric fracture of right femur, initial encounter for closed fracture (principal); G93.41 Metabolic encephalopathy; M62.82 Rhabdomyolysis; E87.1 Hypo-osmolality and hyponatremia; N17.9 Acute kidney failure, unspecified; D62 Acute posthemorrhagic anemia; Z66 Do not resuscitate; K21.9 Gastro-esophageal reflux disease without esophagitis; I10 Essential (primary) hypertension; F17.210 Nicotine dependence, cigarettes, uncomplicated; W18.30XA Fall on same level, unspecified, initial encounter; Y92.013 Bedroom of single-family (private) house as the place of occurrence of the external cause; E86.0 Dehydration; F32.9 Major depressive disorder, single episode, unspecified; D53.9 Nutritional anemia, unspecified; R29.6 Repeated falls; E83.42 Hypomagnesemia; E87.6 Hypokalemia; N40.1 Benign prostatic hyperplasia with lower urinary tract symptoms; E83.39 Other disorders of phosphorus metabolism; R33.9 Retention of urine, unspecified; Z86.59 Personal history of other mental and behavioral disorders; Z79.899 Other long term (current) drug therapy; Z79.890 Hormone replacement therapy; Z79.51 Long term (current) use of inhaled steroids; Z60.2 Problems related to living alone
CPT/HCPCS: 36415; 36416; 36430; 74019; 76000; 80048; 80053; 80307; 81015; 82140; 82550; 82553; 82607; 82746; 83735; 84100; 84439; 84443; 84481; 85007; 85025; 85027; 86850; 86900; 86901; 90471; 90670; 93005; 93306; 94640; 94664; 96360; C1713; G0009; G0390; J0131; J0360; J1100; J2001; J2370; J2405; J2704; J3010; J3411; J3475; J7042; J7050; J7620; P9016; S0028

== ENCOUNTER 2019-05-05 10:00 | Outpatient (CLI) | payer MEDICARE, BC ==
[2019-05-05 12:01] LABS: Bilirubin Negative (Negative); Blood, Urine Moderate (Negative); Clarity TURBID (Clear); Glucose, Urine (Dipstick) Negative (Negative); INR-International Normal Ratio 1.2; Leukocyte Large (Negative); Nitrite Negative (Negative); PTT 47.2 SEC (22.9-36.1); Protein, Urine (Dipstick) Trace mg/dL (Neg-Trace); Prothrombin Time 14.8 SEC (12.0-14.7); Specific Gravity, Urine 1.015 (1.002-1.036)
[2019-05-05 12:04] LABS: Bacteria/HPF 1+ HPF (None Seen); Hyaline Casts/LPF 7-10 HYALINE CAST LPF (0-3 Hyaline); Pathc Cast-AUWi Flag 2.35 (0-2.49); Squamous Epithelial 0-3 HPF (0-3)
[2019-05-05 12:15] LABS: Anion Gap 15 mmol/L (10-20); BUN (Urea Nitrogen) 38 mg/dL (8.4-25.7); Calc. Creatinine Clearance 0 mL/min (70-130); Calcium 8.9 mg/dL (7.8-10.44); Carbon Dioxide 22 mmol/L (23-31); Chloride 95 mmol/L (98-107); Estimated GFR-MDRD 57; Glucose 74 mg/dL (83-110); Potassium 4.9 mmol/L (3.5-5.1); Sodium 127 mmol/L (136-145)
[2019-05-05 12:19] LABS: Hemoglobin 11.9 g/dL (14.0-18.0); Mean Corpuscular HGB CONC 32.5 g/dL (32.0-36.0); Platelet Count 462 thou/uL (130-400); RBC Distribution Width 13.8 % (11.5-14.5); White Blood Cell (WBC) Count 4.9 thou/uL (4.8-10.8)
== END 2019-05-05 10:01 | disposition home or self-care (01) ==
LOC: LABBT 10:00
PROVIDERS: ATTEND Urology
DX: Z01.818 Encounter for other preprocedural examination (principal); N40.1 Benign prostatic hyperplasia with lower urinary tract symptoms; R33.8 Other retention of urine
CPT/HCPCS: 80048; 81001; 85027; 85610; 85730; 87077; 87086; 87186; 93005; 93010

== ENCOUNTER 2019-06-24 08:56 | Day surgery (SDC) | payer MEDICARE, BC ==
[2019-06-23 10:50] VITALS: BMI 20.2
[2019-06-24] MEDS ORDERED: Meropenem 1 GM in Sodium Chloride 0.9% 100 ML IVPB SCH (09:00)
[2019-06-24] MEDS ORDERED: Linezolid 600 MG in Premix Bag 1 BAG IVPB SCH (09:00)
[2019-06-24] MEDS ORDERED: Midazolam HCl 2 mg/2 ml Vial ONE ×2 (09:14→10:22)
[2019-06-24] MEDS ORDERED: Fentanyl 100 MCG/2 ML VIAL ONE ×2 (09:14→10:22)
[2019-06-24] MEDS ORDERED: Propofol 500 MG/50 ML VIAL ONE ×2 (09:14→10:23)
[2019-06-24] MEDS ORDERED: Protamine Sulfate 50 MG/5 ML VIAL ONE (10:22)
[2019-06-24] MEDS ORDERED: MEROPENEM 1 GM/50 ML 1 GM in Premix Bag 1 BAG IVPB SCH (10:30)
--- NOTE | 2019-06-24 18:00 | OP ---
DATE OF PROCEDURE: 06/24/2019 SERVICE: Urology. PREOPERATIVE DIAGNOSIS: BPH with urinary retention. POSTOPERATIVE DIAGNOSIS: BPH with urinary retention. PROCEDURE PERFORMED: UroLift. INDICATIONS FOR PROCEDURE: Mr. Euceda is an 84-year-old white male with BPH and catheter dependence due to urinary retention. He did not wish to have his catheter anymore and wants to try a minimally-invasive procedure to see if he can urinate again. His bladder does show significant disease on cystoscopy, but this is his best chance of being able to void on his own. We discussed the UroLift procedure and he has agreed to proceed forward with all risks and benefits. Of note, the patient did have multidrug resistant Pseudomonas and Enterococcus in his urine, requiring Zyvox and meropenem, which is currently being administered by Infectious Disease via PICC line. He will be receiving doses of antibiotics today before the procedure. DESCRIPTION OF PROCEDURE: After identification of armband and verification of consent, the patient was brought back to the operating room, where he underwent total intravenous anesthesia. He was then placed in dorsal lithotomy position and prepped and draped in usual sterile fashion. After appropriate time-out, a lubricated 21-Prydeinig rigid cystoscope sheath with visual obturator was passed into the urethra, to the prostate, which was hypertrophic. The bladder shows significant inflammation from his chronic indwelling Mcmullen catheter with heavy trabeculations and diverticula with cellules. There were no bladder stones or other abnormalities. The visual obturator was switched out for the UroLift device. Initial implant was placed on the lateral lobe of the prostate toward the left side toward the bladder neck. Compression was obtained of the prostate to bring the lobe laterally and making sure we were far enough back away from the bladder neck. Safety was removed and the blue trigger was pulled to fire the needle. The lopez trigger was then fired to deploy the UroLift device and we advanced forward until the white line could be seen in the keyhole. At which point, the steel tab was deployed. This did result in a nice movement of the prostate laterally. This was repeated on the contralateral side on the patient's right near the bladder neck, taking care not to go too close to the bladder neck. Two additional implants were deployed near the verumontanum. At this point, we reinspected the prostatic fossa and it did show that there was sagging of the left prostate near the bladder neck, so an additional implant was deployed there to lift the left prostate near the bladder neck up higher, which resulted in nice opening of the bladder neck. There was an additional sagging on the right side near the verumontanum, so an additional implant was deployed there, which resulted in nice opening of the prostate circumferentially. There were still some irregularities within the prostate, but for the most part, the prostate channel was wide open with the bladder neck being patent. I felt this should be satisfactory for the patient to be able to void. There was minimal bleeding, so the UroLift device was removed with the cystoscope. An 18-Prydeinig Mcmullen catheter was then placed into the patient's bladder with 10 mL of sterile water into the balloon. The patient was then awakened and taken to PACU for recovery in stable condition. COMPLICATIONS: None. ESTIMATED BLOOD LOSS: Minimal. RETAINED TUBES AND DRAINS: An 18-Prydeinig Mcmullen catheter. SPECIMENS: None. DISPOSITION: The patient will be discharged home after a void trial. If he is unable to void, we will keep the catheter in and I will handle his care on an outpatient basis thereafter. Job ID: [id number]
== END 2019-06-24 13:10 | disposition home or self-care (01) ==
LOC: SDC 08:56
PROVIDERS: ATTEND Urology
PROC: 0T7D8DZ Dilation of Urethra with Intraluminal Device, Via Natural or Artificial Opening Endoscopic (ICD-10-PCS; principal; 2019-06-24)
DX: N40.1 Benign prostatic hyperplasia with lower urinary tract symptoms (principal); R33.8 Other retention of urine; I10 Essential (primary) hypertension; K21.9 Gastro-esophageal reflux disease without esophagitis; Z79.899 Other long term (current) drug therapy; Z91.038 Other insect allergy status
CPT/HCPCS: C1889; C9740; J2020; J2185; J2250; J2704; J2720; J3010; J3490